=== PATIENT | female | born 1990 | race African-American/Black ===

== ENCOUNTER 2017-12-08 22:31 | Emergency (ER) | payer OTHER ==
[~2017-12-08] VITALS: Ht 157.5 cm; Wt 86.0 kg
[2017-12-08 22:34] VITALS: BP 126/79; PULSE 89; RESP 16; TEMP 97.8; O2SAT 98
[2017-12-08 23:00] VITALS: BP 130/66; PULSE 74; RESP 18; O2SAT 96
[2017-12-08] MEDS ORDERED: FAMOTIDINE 20 MG/2 ML VIAL IV PUSH ONE (23:00)
[2017-12-08] MEDS ORDERED: EPINEPHrine HCL (1:1000) 1 MG/ML VIAL IM ONE (23:00)
[2017-12-08] MEDS ORDERED: diphenhydrAMINE HCL 50 MG/ML VIAL IVP ONE (23:00)
[2017-12-08] MEDS ORDERED: methylPREDNISolone SOD SUCC 125 MG/2 ML VIAL IV PUSH ONE (23:00)
--- NOTE | 2017-12-08 23:07 | PD ---
HPI Chief Complaint: Allergic/Adverse Reaction Time Seen by Provider: 22:48 Travel History International Travel<30 days: No Contact w/Intl Traveler<30days: No Traveled to known affect area: No History of Present Illness HPI 27yo F with no significant PMH presents to the ED with c/o generalized itching and hives for 1 week but worst since yesterday. Said she was taking metronidazole for bacterial vaginosis and finished it last night. Said symptoms got worst last night. Has burning in her throat as well as midsternal chest pain since yesterday. Pain is sharp, nonradiating. Denies any sob, wheezing, n/v, abdominal pain, focal weakness or numbness. Had metronidazole once and also had itching but not as bad. PFSH Past Medical History Medical History: Denies Significant Hx ?: Not LMP: 218 Past Surgical History Section: Yes Other Surgery: Yes (breast reduction) Social History Alcohol Use: Yes Tobacco Use: No Substance Use: No Allergies-Medications (Allergen,Severity, Reaction): Coded Allergies: metronidazole (Verified Allergy, Severe, Hives, itching, 12/08/17) Reported Meds & Prescriptions Reported Meds & Active Scripts Active No Active Prescriptions or Reported Medications Review of Systems Except as stated in HPI: all other systems reviewed are Neg Physical Exam Narrative GENERAL: 27yo F in mild distress. SKIN: +urticaria in bilateral arms, upper back. No mucosal involvement. HEAD: Atraumatic. Normocephalic. EYES: Pupils equal and round. No scleral icterus. No injection or drainage. ENT: No nasal bleeding or discharge. Mucous membranes pink and moist. NECK: Trachea midline. No JVD. CARDIOVASCULAR: Regular rate and rhythm. No murmur appreciated. RESPIRATORY: No accessory muscle use. Clear to auscultation. Breath sounds equal bilaterally. GASTROINTESTINAL: Abdomen soft, non-tender, nondistended. MUSCULOSKELETAL: No obvious deformities. No clubbing. No cyanosis. No edema. NEUROLOGICAL: Awake and alert. No obvious cranial nerve deficits. Motor grossly within normal limits. Normal speech. PSYCHIATRIC: Appropriate mood and affect; insight and judgment normal. Data Data Last Documented VS Vital Signs Date Time Temp Pulse Resp B/P (MAP) Pulse Ox O2 Delivery O2 Flow Rate FiO2 12/09/17 00:00 82 18 120/73 (89) 96 Room Air 12/08/17 22:34 97.8 Orders Orders Ecg Monitoring (12/08/17 22:56) Iv Access Insert/Monitor (12/08/17 22:56) Diphenhydramine Inj (Benadryl Inj) (12/08/17 23:00) Methylprednisolone So Succ Inj (Solumedr (12/08/17 23:00) Famotidine Inj (Pepcid Inj) (12/08/17 23:00) Epinephrine (1:1000) Inj (Adrenalin (1:1 (12/08/17 23:00) Complete Blood Count With Diff (12/08/17 22:56) Basic Metabolic Panel (Bmp) (12/08/17 22:56) Troponin I (12/08/17 22:56) Magnesium (Mg) (12/08/17 22:56) Prothrombin Time / Inr (Pt) (12/08/17 22:56) Act Partial Throm Time (Ptt) (12/08/17 22:56) Chest, Single Ap (12/08/17 ) Labs Laboratory Tests Test 12/08/17 23:04 White Blood Count 6.5 TH/MM3 Red Blood Count 4.84 MIL/MM3 Hemoglobin 14.0 GM/DL Hematocrit 42.0 % Mean Corpuscular Volume 86.7 FL Mean Corpuscular Hemoglobin 28.9 PG Mean Corpuscular Hemoglobin Concent 33.4 % Red Cell Distribution Width 14.0 % Platelet Count 370 TH/MM3 Mean Platelet Volume 7.7 FL Neutrophils (%) (Auto) 50.7 % Lymphocytes (%) (Auto) 38.5 % Monocytes (%) (Auto) 10.1 % Eosinophils (%) (Auto) 0.4 % Basophils (%) (Auto) 0.3 % Neutrophils # (Auto) 3.3 TH/MM3 Lymphocytes # (Auto) 2.5 TH/MM3 Monocytes # (Auto) 0.7 TH/MM3 Eosinophils # (Auto) 0.0 TH/MM3 Basophils # (Auto) 0.0 TH/MM3 CBC Comment DIFF FINAL Differential Comment Prothrombin Time 10.7 SEC Prothromb Time International Ratio 1.1 RATIO Activated Partial Thromboplast Time 26.8 SEC Blood Urea Nitrogen 15 MG/DL Creatinine 0.91 MG/DL Random Glucose 101 MG/DL Calcium Level 8.6 MG/DL Magnesium Level 2.1 MG/DL Sodium Level 138 MEQ/L Potassium Level 4.4 MEQ/L Chloride Level 106 MEQ/L Carbon Dioxide Level 24.6 MEQ/L Anion Gap 7 MEQ/L Estimat Glomerular Filtration Rate 75 ML/MIN Troponin I LESS THAN 0.02 NG/ML MDM Medical Decision Making Medical Screen Exam Complete: Yes Emergency Medical Condition: Yes Interpretation(s) EKG: NSR 70bpm. Normal axis. No ST segment elevation or depression. Differential Diagnosis Anaphylaxis vs. allergic reaction vs. medication reaction Narrative Course 27yo F with allergic reaction to metronidazole. She also has atypical chest pain that may be associated with anaphylaxis. Do not think it is cardiac. Vital signs stable. Denies any family history of sudden cardiac or any cardiac risk factors. Labs reviewed, no leukocytosis. H/H normal. Troponin negative. CXR showed no acute disease. Pt given epinephrine, famotidine, methylprednisolone and diphenhydramine. Pt reevaluated at bedside and feels better. States itching and chest pain has resolved. Denies any sob or tongue/ lip swelling. Pt has been observed for almost three hours and still has no symptoms. Return precautions given. Diagnosis Primary Impression: Allergic reaction Qualified Codes: T78.40XA - Allergy, unspecified, initial encounter Patient Instructions: General Instructions Departure Forms: Tests/Procedures Additional Instructions: Please follow up with your primary care physician in 2-3 days. Return to the ED if symptoms worsen. Med/Other Pt SpecificInfo: Prescription(s) given Scripts Epinephrine Inj (Epipen 2-Juan C Inj) 0.3 Mg/0.3 Ml Pfpen 0.3 MG IM ONCE Y for ALLERGIC REACTION, #1 PACK 0 Refills Prov: Daphne Finney DO 12/09/17 Diphenhydramine (Diphenhydramine) 25 Mg Tab 25 MG PO Q6H Y for ITCHING for 5 Days, #20 TAB 0 Refills Prov: Daphne Finney DO 12/09/17 Prednisone (Deltasone) 20 Mg Tab 20 MG PO BID for 5 Days, #10 TAB 0 Refills Prov: Daphne Finney DO 12/09/17 Disposition: 01 DISCHARGE HOME Condition: Stable Daphne Finney DO Dec 08, 2017 23:07
[2017-12-08 23:13] LABS: AUTOMATED NEUTROPHIL # 3.3 TH/MM3 (1.8-7.7); BASOPHIL % 0.3 % (0.0-2.0); EOSINOPHIL % 0.4 % (0.0-4.0); LYMPH % 38.5 % (9.0-44.0); LYMPHOCYTE # 2.5 TH/MM3 (1.0-4.8); MEAN CELL VOLUME 86.7 FL (80.0-100.0); MEAN CORPUSCULAR HEMOGLOBIN 28.9 PG (27.0-34.0); MEAN CORPUSCULAR HGB CONC 33.4 % (32.0-36.0); MEAN PLATELET VOLUME 7.7 FL (7.0-11.0); MONO % 10.1 % (0.0-8.0); MONOCYTE # 0.7 TH/MM3 (0-0.9); NEUT % 50.7 % (16.0-70.0); PLATELET COUNT 370 TH/MM3 (150-450); RED BLOOD COUNT 4.84 MIL/MM3 (4.00-5.30); WHITE BLOOD COUNT 6.5 TH/MM3 (4.0-11.0)
[2017-12-08] MEDS ORDERED: METR1TAB76 PO (23:21)
--- NOTE | 2017-12-08 23:31 | RADRPT ---
EXAM DATE/TIME: 12/08/2017 23:06 [facility] COMPARISON: No previous studies available for comparison. INDICATIONS : Chest pain. MEDICAL HISTORY : None. SURGICAL HISTORY : None. ENCOUNTER: Initial ACUITY: 1 day PAIN SCORE: 4/10 LOCATION: Bilateral chest FINDINGS: Cardiomegaly. Clear lungs. Osseous structures are intact. CONCLUSION: No acute disease. Nuno Claudio MD on December 08, 2017 at 23:28 Board Certified Radiologist. This report was verified electronically.
[2017-12-08 23:36] LABS: BICARBONATE 24.6 MEQ/L (21.0-32.0); BLOOD UREA NITROGEN 15 MG/DL (7-18); CALCIUM 8.6 MG/DL (8.5-10.1); CHLORIDE 106 MEQ/L (98-107); CREATININE 0.91 MG/DL (0.50-1.00); GLOMERULAR FILTRATION RATE 75 ML/MIN (>89); GLUCOSE,RANDOM 101 MG/DL (74-106); MAGNESIUM 2.1 MG/DL (1.5-2.5); SODIUM (NA) 138 MEQ/L (136-145)
[2017-12-08 23:37] LABS: TROPONIN I LESS THAN 0.02 NG/ML (0.02-0.05)
[2017-12-08 23:47] LABS: INTERNATIONAL NORMALIZED RATIO 1.1 RATIO; PROTHROMBIN TIME - PATIENT 10.7 SEC (9.8-11.6)
[2017-12-09] VITALS: BP 120/73; PULSE 82; RESP 18; O2SAT 96
[2017-12-09] MEDS ORDERED: EPIP0.3I IM (01:44)
[2017-12-09] MEDS ORDERED: PRED-503 PO (01:44)
[2017-12-09] MEDS ORDERED: DIPH25TA2 PO (01:44)
--- NOTE | 2017-12-09 18:25 | EKG ---
Date Performed: 12/08/2017 Time Performed: 22:58:32 PTAGE: 27 years EKG: Sinus rhythm NORMAL ECG NO PREVIOUS TRACING DOCTOR: Ibrahima Jiménez Interpretating Date/Time 12/09/2017 18:23:05
== END 2017-12-09 02:04 | disposition home or self-care (01) ==
LOC: NEPE 22:31
DX: L29.9 Pruritus, unspecified (principal); T37.8X5A Adverse effect of other specified systemic anti-infectives and antiparasitics, initial encounter; Z88.8 Allergy status to other drugs, medicaments and biological substances
CPT/HCPCS: 71045; 80048; 83735; 84484; 85025; 85610; 85730; 93005; 96372; 96374; 96375; 99284; J0171; J1200; J2930